=== PATIENT | female | born 1965 ===

== ENCOUNTER 2017-08-10 14:51 | Emergency (ER) | payer OTHER ==
[2017-08-10 14:55] VITALS: BP 116/77; PULSE 98; RESP 18; TEMP 96; O2SAT 100
[2017-08-10] MEDS ORDERED: Sodium Chloride 0.9% 1,000 ML IV SCH (15:45)
--- NOTE | 2017-08-10 16:13 | ED PDOC ---
HPI: Abdomen Chief Complaint (Provider): "carlos been throwing up all morning" History Per: Patient History/Exam Limitations: no limitations Onset/Duration Of Symptoms: Hrs Outside of [place] travel?: No Current Symptoms Are (Timing): Intermittent Episodes Location Of Pain/Discomfort: Diffuse Quality Of Discomfort: Cramping Associated Symptoms: Nausea, Vomiting, Diarrhea, Loss Of Appetite Last Bowel Movement: Today <Neto Horton - Last Filed: 08/10/17 17:41> <Russ Ortega - Last Filed: 08/11/17 20:22> Time Seen by Provider: 08/10/17 15:33 Chief Complaint (Nursing): GI Problem Additional Complaint(s): 52 y/o female, with no significant PMHx presents complaining of nausea, vomiting and diarrhea since 8am today. Pt reports being in state of good health last night when she woke up feeling ill today. She had 5 episodes of NBNB emesis which contained primarily food particles and water. She also had about 8- 9 episodes of watery diarrhea. She reports having a bloating like abdominal discomfort with the episodes. She has loss of appetite and nausea. She reports a subjective fever earlier today. Mother had the same symptoms 1 day ago. Denies any travel, recent abx usage, or changes in diet. She denies any headaches, changes in vision, CP/SOB/palpitations, hematemesis, coffee-ground emesis, melena, hematochezia, numbness/tingling. (Neto Horton) Supervising Attending Note - Supervising Attending Note The Documented history was done by the: Physician Documentation Improvement Specialist, Attending Physician The documented physical exam was done by the: Physician Documentation Improvement Specialist, Attending Physician The documented procedures were done by the: Physician Documentation Improvement Specialist, Attending Physician - Attestation: I have personally seen and examined this patient.: Yes I have fully participated in the care of the patient.: Yes I have reviewed all pertinent clinical information: Yes <Russ Ortega - Last Filed: 08/11/17 20:22> Past Medical History Reviewed: Vital Signs - Family History Family History: States: Unknown Family Hx <Neto Horton - Last Filed: 08/10/17 17:41> Reviewed: Nursing Documentation - Medical History PMH: No Chronic Diseases - Surgical History Surgical History: No Surg Hx <Russ Ortega - Last Filed: 08/11/17 20:22> Vital Signs: Last Vital Signs Temp 96 F L 08/10/17 14:54 Pulse 98 H 08/10/17 14:54 Resp 18 08/10/17 14:54 BP 116/77 08/10/17 14:54 Pulse Ox 100 08/10/17 17:44 - Home Medications Home Medications: Ambulatory Orders Medication Instructions Recorded Ondansetron ODT [Zofran ODT] 4 mg PO BID PRN #10 odt 08/10/17 - Allergies Allergies/Adverse Reactions: Allergies Allergy/AdvReac Type Severity Reaction Status Date / Time No Known Allergies Allergy Verified 08/10/17 14:54 Review of Systems ROS Statement: Except As Marked, All Systems Reviewed And Found Negative <Neto Horton - Last Filed: 08/10/17 17:41> Physical Exam - Reviewed Nursing Documentation Reviewed: Yes Vital Signs Reviewed: Yes - Physical Exam Appears: Positive for: Non-toxic, No Acute Distress, Uncomfortable Head Exam: Positive for: ATRAUMATIC Skin: Positive for: Normal Color, Warm, Dry. Negative for: Diaphoresis, Pallor , Rash Eye Exam: Positive for: EOMI, PERRL. Negative for: Conjunctival injection, Scleral icterus Neck: Positive for: Normal, Painless ROM, Supple Cardiovascular/Chest: Positive for: Regular Rate, Rhythm. Negative for: Chest Non Tender, Murmur Respiratory: Positive for: Normal Breath Sounds. Negative for: Crackles, Rales , Rhonchi, Respiratory Distress Pulses-Radial (L): 2+ Pulses-Radial (R): 2+ Gastrointestinal/Abdominal: Positive for: Bowel Sounds (hyperactive ), Soft, Tenderness (mild discomfort during examination ). 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 Negative for: Motor/Sensory Deficits <Neto Horton - Last Filed: 08/10/17 17:41> - Laboratory Results Result Diagrams: 08/10/17 16:10 08/10/17 16:10 - ECG O2 Sat by Pulse Oximetry: 100 <Neto Horton - Last Filed: 08/10/17 17:41> - Laboratory Results Result Diagrams: 08/10/17 16:10 08/10/17 16:10 <Russ Ortega - Last Filed: 08/11/17 20:22> - Progress ED Course And Treament: CBC BMP Zofran 4mg IVP Imodium 4mg 1 L NS @ 999 re-evaluated symptoms improving, no vomiting or diarrhea during ED stay, tolerated PO challenge w/o difficulty. (Neto Horton) Medical Decision Making <Neto Horton - Last Filed: 08/10/17 17:41> <Russ Ortega - Last Filed: 08/11/17 20:22> Medical Decision Making: Impression Vomiting and diarrhea Diff dx include but not limited to acute gastroenteritis. Dehydration. ( Russ Ortega) Disposition - Patient ED Disposition Is Patient to be Admitted: No - Disposition Disposition: Routine/Home Disposition Time: 17:43 <Neto Horton - Last Filed: 08/10/17 17:41> Counseled Patient/Family Regarding: Studies Performed, Diagnosis <Russ Ortega - Last Filed: 08/11/17 20:22> - Clinical Impression Clinical Impression: Gastroenteritis - Disposition Referrals: Holden Stock Jr., MD [Family Provider] - Condition: IMPROVED Additional Instructions: get plenty of rest drink plenty of fluids take Zofran as needed for nausea start with clear liquids and progress diet as tolerated and appetite returns follow up with your PMD in 2-3 days Prescriptions: Ondansetron ODT [Zofran ODT] 4 mg PO BID PRN #10 odt PRN Reason: Nausea/Vomiting Forms: [facility] (Croatian), [facility] ED School/Work Excuse
[2017-08-10 16:14] LABS: HEMOGLOBIN 14.5 g/dL (12.0-16.0); MEAN CELL VOLUME 86.7 fl (81.0-99.0); MEAN CORPUSCULAR HEMOGLOBIN 28.8 pg (27.0-31.0); MEAN CORPUSCULAR HGB CONC 33.2 g/dL (33.0-37.0); RBC 5.04 Mil/uL (3.80-5.20); RED CELL DISTRIBUTION WIDTH 13.8 % (11.5-14.5); WHITE BLOOD COUNT 18.1 K/uL (4.8-10.8)
[2017-08-10 16:24] LABS: CALCIUM 10.3 mg/dL (8.4-10.2)
[2017-08-10] MEDS ORDERED: Potassium Chloride 20 mEq ER Tab PO ONE (23:18)
== END 2017-08-10 19:00 | disposition home or self-care (01) ==
LOC: H.ER 14:51
DX: K52.9 Noninfective gastroenteritis and colitis, unspecified (principal); E86.0 Dehydration
CPT/HCPCS: 80048; 85027; 96374; 99281; J2405; J7040